=== PATIENT | male | born 1985 | race Two or more races ===

== ENCOUNTER 2017-08-02 23:16 | Emergency (ER) | payer SELFPAY ==
[~2017-08-02] VITALS: Ht 185.4 cm; Wt 99.8 kg
[2017-08-02 23:25] VITALS: BP 135/98
== END 2017-08-03 06:22 | disposition left against medical advice (07) ==
LOC: EDBD 23:16 → ER 23:19
DX: R11.2 Nausea with vomiting, unspecified (principal); Z53.21 Procedure and treatment not carried out due to patient leaving prior to being seen by health care provider